=== PATIENT | male | born 1975 | race Caucasian/White ===

== ENCOUNTER → 2017-02-13 | Outpatient (CLI) | payer OTHER ==
--- NOTE | 2017-02-14 11:52 | MR ---
EXAM DATE: 02/13/17 PATIENT'S AGE: 41 Patient: JANIS LITTLE Facility: [place], [place] Site . Site : 1975 Study: MRI Spine Lumbar [id number] 7:28:53 PM Ordering Physician: Alonzo Bae Final Report: Indication: Low back pain. Comparison: None. Technique: Sagittal T1, T2, and STIR sequences. Axial T1 and T2 weighted sequences. Findings: Normal vertebral body alignment. No fractures. No vertebral body loss of height. No spondylolisthesis. No ligamentous injury. Normal marrow signal. Normal conus terminates at L1. T11-12: No spinal canal or neural foraminal narrowing. T12-L1: Disk degeneration with a shallow left paracentral disk protrusion. No narrowing of spinal canal. No neural foraminal narrowing. L1-2: No spinal canal or neural foraminal narrowing. L2-3: No spinal canal or neural foraminal narrowing. L3-4: Annular bulge and a shallow central disc protrusion. Otherwise, no spinal canal or neural foraminal narrowing. L4-5: Disc degeneration with loss disc height. Central and right paracentral disc protrusion measuring approximately 5 mm in short axis. No narrowing of spinal canal. Impingement of the traversing right L5 nerve root. Facet arthropathy contributes to mild narrowing of the bilateral neural foramina. L5-S1: Posterior disk bulge with no narrowing of spinal canal. No impingement of the traversing S1 nerve roots. No neural foraminal narrowing. Mild bilateral facet arthropathy. Degenerative changes of the SI joints. Normal paraspinal soft tissues. Impression: 1. Normal alignment. No fractures. No spondylolisthesis. 2. At L4-5, disk degeneration with central right paracentral disc protrusion. Impingement of the traversing right L5 nerve root. Mild narrowing of bilateral foramina 3. No spinal canal or neural foraminal narrowing at the remaining levels Dictated by Kal Prabhakar MD @ Feb 13 2017 9:49PM (Electronic Signature) Report Signed by Proxy. [facility]ITALHaroldo
== END ==
LOC: MW.MRI 18:18
PROVIDERS: ATTEND Family Medicine
DX: M54.5 Low back pain (principal); M51.36 Other intervertebral disc degeneration, lumbar region
CPT/HCPCS: 72148; 72148-26